=== PATIENT | female | born 1995 | race Caucasian/White ===

== ENCOUNTER 2023-11-29 22:04 | Emergency (ER) | payer OTHER ==
[2023-11-29] MEDS ORDERED: Ketorolac Tromethamine 30 MG (1 mL) VIAL ONE (22:35)
[2023-11-29] MEDS ORDERED: Amoxicillin/Potassium Clav 875 MG TAB ONE (23:31)
[2023-11-30] MEDS ORDERED: Morphine 4 MG/ML VIAL ONE (00:14)
[2023-11-30] MEDS ORDERED: Morphine 2 MG/ML VIAL ONE (00:14)
[2023-11-30] MEDS ORDERED: Ondansetron ODT 4 MG TAB ONE (00:18)
== END 2023-11-30 00:45 | disposition short-term general hospital (02) ==
LOC: ERS 22:04
DX: S01.551A Open bite of lip, initial encounter (principal); S01.511A Laceration without foreign body of lip, initial encounter; W54.0XXA Bitten by dog, initial encounter
CPT/HCPCS: 96372; 99284; J1885; J2270; J2272; Q0162